=== PATIENT | female | born 1980 | race Caucasian/White ===

== ENCOUNTER 2021-01-16 23:59 | Emergency (ER) | payer OTHER ==
[2021-01-17 01:07] LABS: RED BLOOD COUNT 4.61 M/UL (4.00-5.10); WHITE BLOOD COUNT 10.8 K/UL (4.5-11.0)
[2021-01-17 01:53] LABS: BUN/CREATININE RATIO 15 (0-10)
[2021-01-17] MEDS ORDERED: BENTYL 20MG TAB20 MG PO (02:27)
[2021-01-17] MEDS ORDERED: LODINE CAP 300300 MG PO (02:27)
[2021-01-17] MEDS ORDERED: ZOFRAN ODT 4 MG4 MG PO (02:27)
== END 2021-01-17 02:36 | disposition home or self-care (01) ==
LOC: ER1 23:59
PROVIDERS: Physician Assistant
DX: R10.31 Right lower quadrant pain (principal); Z90.49 Acquired absence of other specified parts of digestive tract; Z88.5 Allergy status to narcotic agent
CPT/HCPCS: 80053; 81001; 83605; 83690; 84703; 85025; 85652; 86140; 87086; 96374; 96375; 99284; J1885; J2405; Q9967